=== PATIENT | male | born 1950 | race Caucasian/White ===

== ENCOUNTER 2021-12-06 11:48 | Observation (INO) | payer MEDICARE, OTHER ==
[~2021-12-06] VITALS: Ht 172.7 cm; Wt 81.0 kg
[2021-12-06] MEDS ORDERED: FAMO20 PO (12:37)
[2021-12-06] MEDS ORDERED: TAMSULOSIN HCL0.4 M1 PO (12:37)
[2021-12-06] MEDS ORDERED: ROSUVASTATIN CAL5 MG PO (12:38)
[2021-12-06] MEDS ORDERED: LEVOTHYROXINE112 M16 PO (12:38)
[2021-12-06] MEDS ORDERED: LOSA50 PO (12:39)
[2021-12-06] MEDS ORDERED: Keppra750 MG PO (12:39)
[2021-12-06 12:46] LABS: BASOPHILS ABSOLUTE AUTO 0.05 K/mm3 (0.00-0.23); BASOPHILS PERCENT AUTO 1 % (0-2); EOSINOPHILS ABSOLUTE AUTO 0.06 K/mm3 (0.00-0.68); EOSINOPHILS PERCENT AUTO 1 % (0-6); Hematocrit 36.5 % (37.0-53.0); Hemoglobin 12.5 g/dL (13.5-17.5); IMMATURE GRAN ABSOLUTE AUTO 0.02 K/mm3 (0.00-0.10); IMMATURE GRAN PERCENT AUTO 0 % (0-1); LYMPHOCYTES ABSOLUTE AUTO 1.58 K/mm3 (0.84-5.20); LYMPHOCYTES PERCENT AUTO 22 % (21-46); MONOCYTES ABSOLUTE AUTO 0.72 K/mm3 (0.16-1.47); MONOCYTES PERCENT AUTO 10 % (4-13); Mean Corpuscular HGB 29.7 pg (26.0-34.0); Mean Corpuscular HGB Conc 34.2 g/dL (31.5-36.5); Mean Corpuscular Volume 87 fL (80-100); Mean Platelet Volume 10.9 fL (9.1-12.4); NEUTROPHILS ABSOLUTE AUTO 4.64 K/mm3 (1.96-9.15); NEUTROPHILS PERCENT AUTO 66 % (41-73); Platelet Count 229 K/mm3 (150-400); RDW Coefficient Variation 13.3 % (11.7-14.2); RDW Standard Deviation 41.5 fL (35.1-46.3); Red Blood Cell Count 4.21 M/mm3 (4.30-5.90); White Blood Cell Count 7.07 K/mm3 (4.00-11.30)
[2021-12-06 13:05] LABS: Albumin, Blood 3.4 g/dL (3.4-5.0); Bilirubin, Total 0.3 mg/dL (0.1-1.0); Bun/Creatinine Ratio 23.1 (12.0-20.0); Calcium, Blood 8.8 mg/dL (8.5-10.1); Creatinine, Blood 1.08 mg/dL (0.60-1.20); Globulin, Blood 3.5 g/dL (2.2-4.0); Potassium, Blood 4.3 mmol/L (3.5-5.5); Total Protein, Blood 6.9 g/dL (6.4-8.2)
[2021-12-06] MEDS ORDERED: ASPI81CH PO (13:41)
[2021-12-06 15:48] LABS: CHOL/HDL RATIO 3.1; Cholesterol 140 mg/dL (50-200); HDL Cholesterol 45 mg/dL (>39); LDL/HDL RATIO 1.9; Low Density Lipoprotein Chol 85 mg/dL (0-110); Triglycerides 51 mg/dL (30-160); Very Low Density Lipoprot Chol 10 mg/dL (6-32)
--- NOTE | 2021-12-06 16:44 | NUR ---
PT ARRIVED, TOA: 1749, WT 89.0, GOING DOWN FOR MRI, WILL DO VITALS WHEN HE COMES BACK PER RN RENUKA
--- NOTE | 2021-12-06 16:54 | NUR ---
ER TRANSFER TO MEDICAL FLOOR PT ARRIVED TO MEDICAL FLOOR AND WAS PICKED UP FOR TRANSPORT TO [facility] FOR MRI. PT'S WAITING IN ROOM. TELE BOX RECEIVED FOR PT, WILL PUT ON PT WHEN HE RETURNS FROM MRI.
--- NOTE | 2021-12-06 17:51 | NUR ---
DAY SHIFT SUMMARY 71 YR OLD MALE WITH CVA, PAST HX OF CVA. RT SIDED WEAKNESS. HX OF BRADYCARDIA. A/O X4 INDEPENDENT. ORIENTED TO ROOM/SURROUNDINGS/CALL LIGHT, ABLE TO CALL APPROPRIATE.
--- NOTE | 2021-12-07 05:04 | NUR ---
SHIFT SUMMARY A/OX4, IND TO BATHROOM. SLIGHT WEAKNESS TO R. SIDE, SLURRED SPEECH NOTED. DENIES PAIN OR SOB. TELE SB IN THE 40S-50S. VSS, NO ACUTE CHANGES AT THIS TIME. BED IN LOWEST POSITION WITH CALL LIGHT IN REACH. WILL CONTINUE TO MONITOR AND REPORT TO ONCOMING RN.
[2021-12-07] MEDS ORDERED: CLOP75 PO (17:55)
== END 2021-12-07 19:05 | disposition home or self-care (01) ==
LOC: ER 11:48 → MEDS 11:50 → ER 14:24 → MEDS 14:24
PROVIDERS: Physician Assistant; Student in an Organized Health Care Education/Training Program; ADMIT Internal Medicine
DX: I63.9 Cerebral infarction, unspecified (principal); R56.9 Unspecified convulsions; R00.1 Bradycardia, unspecified; E03.9 Hypothyroidism, unspecified; Z88.8 Allergy status to other drugs, medicaments and biological substances; Z79.899 Other long term (current) drug therapy
CPT/HCPCS: 70450; 70496; 70498; 80053; 80061; 85025; 93005; 93010; 93306; 97110; 97116; 97161; A9270; J1650; Q9967

== ENCOUNTER 2022-12-22 12:08 | Emergency (ER) | payer MEDICARE, OTHER ==
[~2022-12-22] VITALS: Ht 172.7 cm; Wt 90.7 kg
[~2022-12-22 12:08] MED LIST: ASPI81CH PO; CLOP75 PO; FAMO20 PO; Keppra750 MG PO; LEVOTHYROXINE112 M16 PO; LOSA50 PO; ROSUVASTATIN CAL5 MG PO; TAMSULOSIN HCL0.4 M1 PO
[2022-12-22 13:11] LABS: BASOPHILS ABSOLUTE AUTO 0.04 K/mm3 (0.00-0.23); BASOPHILS PERCENT AUTO 0 % (0-2); EOSINOPHILS ABSOLUTE AUTO 0.05 K/mm3 (0.00-0.68); EOSINOPHILS PERCENT AUTO 0 % (0-6); Hemoglobin 12.6 g/dL (13.5-17.5); IMMATURE GRAN ABSOLUTE AUTO 0.05 K/mm3 (0.00-0.10); IMMATURE GRAN PERCENT AUTO 0 % (0-1); LYMPHOCYTES ABSOLUTE AUTO 1.01 K/mm3 (0.84-5.20); LYMPHOCYTES PERCENT AUTO 8 % (21-46); MONOCYTES PERCENT AUTO 6 % (4-13); Mean Corpuscular HGB 30.3 pg (26.0-34.0); Mean Corpuscular HGB Conc 34.1 g/dL (31.5-36.5); Mean Corpuscular Volume 89 fL (80-100); Mean Platelet Volume 10.9 fL (9.1-12.4); NEUTROPHILS ABSOLUTE AUTO 10.25 K/mm3 (1.96-9.15); NEUTROPHILS PERCENT AUTO 85 % (41-73); Platelet Count 236 K/mm3 (150-400); RDW Coefficient Variation 12.9 % (11.7-14.2); RDW Standard Deviation 42.2 fL (35.1-46.3); Red Blood Cell Count 4.16 M/mm3 (4.30-5.90)
[2022-12-22 13:37] LABS: Albumin, Blood 3.3 g/dL (3.4-5.0); Bilirubin, Total 0.4 mg/dL (0.1-1.0); Bun/Creatinine Ratio 22.5 (12.0-20.0); Calcium, Blood 9.3 mg/dL (8.5-10.1); Creatinine, Blood 1.29 mg/dL (0.60-1.20); Globulin, Blood 3.3 g/dL (2.2-4.0); Magnesium, Blood 1.8 mg/dL (1.6-2.4); Phosphorus, Blood 1.7 mg/dL (2.5-4.9); Potassium, Blood 4.6 mmol/L (3.5-5.5); Thyroid Stimulating Hormone 3.45 uIU/mL (0.360-4.800); Total Protein, Blood 6.6 g/dL (6.4-8.2)
[2022-12-22 13:57] LABS: International Normalized Ratio 1.05
[2022-12-22 14:28] LABS: Source, Urine Clean Catch
[2022-12-22 14:39] LABS: Appearance, Urine Clear (Clear); Bilirubin, Urine Neg (Neg); Blood, Urine Neg (Neg); Color, Urine Yellow (P-Yellow); Glucose Qualitative, Urine Neg (Neg); Ketones, Urine Neg (Neg); Leukocyte Esterase, Urine Neg (Neg); Nitrite, Urine Neg (Neg); Protein, Urine 2+ (Neg); Urobilinogen, Urine NORM (Normal)
[2022-12-22 14:53] LABS: Bacteria Few /hpf; Mucus Light (0-Heavy); Red Blood Cells, Urine Not Seen /hpf (0-2); Squamous Epithelial Cells Rare /hpf (Few); White Blood Cells, Urine 0-2 /hpf (0-5)
[2022-12-22 16:30] VITALS: BP 144/72
== END 2022-12-22 16:52 | disposition home or self-care (01) ==
LOC: ER 12:08
PROVIDERS: Emergency Medicine
DX: R55 Syncope and collapse (principal); Z88.8 Allergy status to other drugs, medicaments and biological substances; Z79.899 Other long term (current) drug therapy; Z79.82 Long term (current) use of aspirin; E03.9 Hypothyroidism, unspecified
CPT/HCPCS: 71046; 80053; 81001; 83735; 84100; 84443; 84484; 85025; 85610; 85730; 93005; 93010; 96360; 99285-25; J7030